=== PATIENT | female | born 2000 | race Caucasian/White ===

== ENCOUNTER 2024-08-01 09:37 | Emergency (ER) | payer OTHER ==
[2024-08-01 09:55] VITALS: BP 95/59; PULSE 67; RESP 16; TEMP 98.4; BMI 22.1
[2024-08-01] MEDS ORDERED: IBUPROFEN 400 MG TABLET (FP) PO ONE (11:19)
[2024-08-01] MEDS ORDERED: LIDOCAINE 4% PATCH TP ONE (11:19)
[2024-08-01] MEDS: LIDOCAINE 4% PATCH TP ONE (11:23)
[2024-08-01] MEDS: IBUPROFEN 400 MG TABLET (FP) PO ONE (11:23)
== END 2024-08-01 11:38 | disposition home or self-care (01) ==
LOC: JERFT 09:37
DX: M54.50 Low back pain, unspecified (principal)
CPT/HCPCS: 99283-25